=== PATIENT | female | born 1985 ===

== ENCOUNTER 2018-03-20 15:30 | Inpatient (IN) | payer OTHER ==
[~2018-03-20] VITALS: Ht 160 cm; Wt 84.8 kg
[2018-03-31] MEDS ORDERED: PRENATABS RX T1 EACH PO (12:58)
== END 2018-04-03 12:00 | DRG 774 ==
LOC: LDR 03-31 12:25 → OB/GYN 04-01 07:08 → LDR 04-09 15:30
PROC: 10E0XZZ Delivery of Products of Conception, External Approach (ICD-10-PCS; principal; 2018-03-31)
PROC: 0UQMXZZ Repair Vulva, External Approach (ICD-10-PCS; 2018-03-31)
PROC: 4A1HXCZ Monitoring of Products of Conception, Cardiac Rate, External Approach (ICD-10-PCS; 2018-03-31)
PROC: 0W8NXZZ Division of Female Perineum, External Approach (ICD-10-PCS; 2018-03-31)
PROC: 4A033R1 Measurement of Arterial Saturation, Peripheral, Percutaneous Approach (ICD-10-PCS; 2018-03-31)
DX: O71.82 Other specified trauma to perineum and vulva (principal); O98.513 Other viral diseases complicating pregnancy, third trimester; B00.89 Other herpesviral infection; O42.02 Full-term premature rupture of membranes, onset of labor within 24 hours of rupture; Z3A.38 38 weeks gestation of pregnancy; Z37.0 Single live birth; Z22.330 Carrier of Group B streptococcus